=== PATIENT | male | born 1955 | race African-American/Black ===

== ENCOUNTER → 2016-12-19 | Outpatient (CLI) | payer OTHER ==
--- NOTE | 2016-12-19 12:07 | MR ---
EXAMINATION TYPE: MR brain wo con DATE OF EXAM: 12/19/2016 COMPARISON: CT brain February 10, 2016. HISTORY: Headaches chronic intractable per order. Additional symptoms of dizziness or hearing loss pe r patient. TECHNIQUE: Multiplanar, multisequence imaging of the brain and brainstem is performed without IV cont rast. FINDINGS: Diffusion weighted images demonstrate no evidence of a recent infarct or other diffusion abnormality. There is no worrisome extra-axial fluid collection. The ventricular system and cisternal spaces are normal in size and appearance. The brain volume is age appropriate. There are areas of T2 hyperinten sity seen throughout the periventricular deep white matter, several small lesions are seen superior t o the lateral ventricles. Some confluent lesions are seen parietal occipital region on axial image 18 . There are additional lesions seen in the bilateral yasmine on axial image 10. Midline structures demonstrate normal morphology. The craniocervical junction appears within normal limits. Normal vascular flow voids are present. The visualized sinuses are clear and the globes are i ntact. Previously visualized superior right frontal scalp lesion on CT is not clearly seen on MRI, co nsider interval excision. 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
--- NOTE | 2016-12-19 12:47 | XR ---
EXAMINATION TYPE: XR cervical spine comp DATE OF EXAM: 12/19/2016 TECHNIQUE: Frontal, lateral, oblique, and open mouth view of the cervical spine are obtained. HISTORY: M54.2 Cervicalgia COMPARISON: None FINDINGS: The cervical spine is visualized in its entirety from C1 thru the top of T1 level, there i s grade 1 retrolisthesis of C4 on C5 and to lesser degree C5 on C6 Without evidence of acute fracture or dislocation. The pre-vertebral soft tissue appears within normal limits. The C1-C2 articulation is within normal limits on the open mouth view. There is mild height loss at C4 level. There is mild height loss or anterior compression at C5 level. There is mild to moderate disc space narrowing C4-C5 and C5-C6 levels. Mild anterior spurring C4-C5 level is present. The oblique images are within normal limits. There may be minimal vascular calcific ation right carotid bulb level and adjacent soft tissue. There is left-sided round calcific density p ossible phlebolith. IMPRESSION: Spondylolisthesis and degenerative changes mid cervical spine as detailed above. Perhaps product of old trauma or fracture.
--- NOTE | 2016-12-19 14:31 | XR ---
EXAMINATION TYPE: XR lumbosacral spine min 4V DATE OF EXAM: 12/19/2016 CLINICAL HISTORY: Low back pain. TECHNIQUE: Frontal, lateral, and oblique images of the lumbar spine are obtained. COMPARISON: None FINDINGS: There are 5 lumbar type vertebral bodies identified. The lumbar spine shows straightened alignment without evidence of acute fracture or dislocation. Vertebral body heights and disk space he ights are within normal limits. Mild anterior spurring L5 level is present. The oblique images appe ar within normal limits. Some vascular calcification overlying soft tissue is seen. IMPRESSION: Mild anterior spurring L5 level.
== END | disposition home or self-care (01) ==
LOC: RADMRIMAIN 11:23
PROVIDERS: ATTEND Family Medicine
DX: I67.82 Cerebral ischemia (principal); M46.06 Spinal enthesopathy, lumbar region; M43.12 Spondylolisthesis, cervical region
CPT/HCPCS: 70551; 72050; 72110

== ENCOUNTER → 2018-01-16 | Day surgery (SDC) | payer MEDICARE, OTHER ==
[2018-01-15 13:20] VITALS: BMI 21.7
[~2018-01-16] MED LIST: LABETALOL 5 MG/ML VIAL MDV IVP ONE; LACTATED RINGERS 1,000 ML IV ONE; LACTATED RINGERS 1,000 ML IV SCH; LIDOCAINE 1% 20 ML VIAL (10MG/ML) FOR IV START INTRADERMA PRN; LIDOCAINE 1% INJ 10MG/ML (20 ML MDV) ONE; METOPROLOL TARTRATE 5 MG/5 ML VIAL IVP STA; PROPOFOL 10 MG/ML 20 ML VIAL IV ONE
[2018-01-16 12:21] VITALS: TEMP 97.4
[2018-01-16 12:50] LABS: Basophils % (A) 0 %; Eosinophils # (A) 0.1 k/uL (0-0.7); Eosinophils % (A) 1 %; HCT 39.8 % (39.0-53.0); HGB 12.7 gm/dL (13.0-17.5); Hypochromasia Slight; Lymphocytes # (A) 1.4 k/uL (1.0-4.8); Lymphocytes % (A) 22 %; MCH 26.8 pg (25.0-35.0); MCV 83.8 fL (80.0-100.0); Mean Platelet Volume 9.6; Monocytes # (A) 0.3 k/uL (0-1.0); Monocytes % (A) 5 %; Neutrophils # (A) 4.3 k/uL (1.3-7.7); Neutrophils % (A) 70 %; Platelet Count 281 k/uL (150-450); RBC 4.75 m/uL (4.30-5.90); RDW 15.6 % (11.5-15.5); WBC 6.2 k/uL (3.8-10.6)
[2018-01-16 13:20] LABS: Poikilocytosis (M) Present
[2018-01-16 13:21] LABS: Target Cells Present
--- NOTE | 2018-01-16 15:39 | P.PCN ---
Date of Procedure: 01/16/18 Procedure(s) Performed: Procedure: 1. Esophagogastroduodenoscopy and biopsy. 2. Total colonoscopy. Preoperative diagnosis: History of GI bleeding. Postoperative diagnosis: 1. Hiatal hernia with no obvious esophagitis or complicated reflux disease. 2. Mild gastritis and duodenitis but no ulcers or active bleeding. 3. Colonoscopy within normal limits however the preparation was poor and small polyps or superficial pathology could have been missed. Sedation: Was provided by anesthesia. Brief clinical history: The patient is a 62-year-old male who is scheduled for this evaluation because of anemia. He had a colonoscopy more than 10 years ago. He denied abdominal symptoms or any significant reflux or any alarm symptoms. This evaluation is to assess for peptic ulcer disease or other sources of bleeding in the upper or lower GI tract. Procedure: With the patient on his left lateral decubitus position and after informed consent and adequate sedation, I passed the Olympus-GIF 160 video upper endoscope through the cricopharyngeus down the esophagus. GE junction was around 40 cm from the incisors and there was a hiatal hernia measuring around 2 cm. There was no obvious esophagitis or complicated reflux disease. The endoscope was then passed into the stomach which was insufflated with air and inspected in detail including the retroflex view in the cardia. Finally, the endoscope was passed through the pylorus into the duodenum. Pyloric channel did not show any ulcers. Duodenal bulb, post bulbar area and descending duodenum showed some mottling and erythema and minimal friability but no ulcers or bleeding. The antrum showed similar findings of mottling and erythema and minimal friability but no ulcers, erosions or active bleeding. I obtained biopsies from the duodenum, antrum and esophagus then the endoscope was withdrawn and I then proceeded with the colonoscopy. Perianal area did not show any fissures or fistulas. There were no masses felt on digital rectal examination. The Olympus CFQ 160L video colonoscope was then inserted in the rectum in the usual fashion and advanced to the cecum. The preparation was poor, however, large polyps or tumors or potential sources of bleeding with have been noted. Certainly, smaller polyps or superficial pathology could've been missed. I retroflexed the endoscope in the rectum before the endoscope was withdrawn. The patient tolerated the procedure well. Plan: The patient was reassured. He will follow up with you as planned and I will be happy to see in the office of his symptoms recur. In light of his poor colon preparation, I recommend repeat exam after more thorough preparation in the next 2 or 3 years to survey for small polyps before going into a 10 year schedule.
[2018-01-16 16:13] VITALS: BP 166/99; PULSE 85; RESP 18
== END ==
LOC: ORWHC2ENDO 11:45
DX: K29.50 Unspecified chronic gastritis without bleeding (principal); K20.9 Esophagitis, unspecified; K44.9 Diaphragmatic hernia without obstruction or gangrene; K29.80 Duodenitis without bleeding; D64.9 Anemia, unspecified; I10 Essential (primary) hypertension; E78.5 Hyperlipidemia, unspecified; Z79.1 Long term (current) use of non-steroidal anti-inflammatories (NSAID); Z79.82 Long term (current) use of aspirin; Z79.899 Other long term (current) drug therapy; Z72.0 Tobacco use
CPT/HCPCS: 88305; 85025; 45378; 43239; J2001; J2704